=== PATIENT | male | born 1940 | race Caucasian/White ===

== ENCOUNTER 2018-05-22 09:31 | Outpatient (CLI) | payer MEDICARE, SELFPAY ==
[2018-05-22 11:58] LABS: Cholesterol 141 mg/dL (50-200); HDL Cholesterol 68 mg/dL (40-60); LDL CHOLESTEROL 65 mg/dL (<100); TSH 2.06 uIU/mL (0.358-3.74); Triglyceride 41 mg/dL (30-150)
== END 2018-05-22 09:51 ==
PROVIDERS: PCP Emergency Medicine; Visit Provider Emergency Medicine
DX: E03.9 Hypothyroidism, unspecified (principal); I25.10 Atherosclerotic heart disease of native coronary artery without angina pectoris; Z12.5 Encounter for screening for malignant neoplasm of prostate
CPT/HCPCS: 36415; 80061; 83721; 84153; 84443

== ENCOUNTER 2018-06-19 15:58 | Outpatient (CLI) | payer MEDICARE, SELFPAY ==
--- NOTE | 2018-06-19 12:30 | DI.RAD_ITS ---
SYMPTOMS/DIAGNOSIS: COUGH, R05, PNEUMONIA, J18.9 PA AND LATERAL CHEST: The heart is not enlarged. There are mediastinal vascular clips consistent with previous CABG surgery. The lungs are clear. No pleural effusion seen. CONCLUSION: No evidence of acute disease.
[2018-06-19 13:12] LABS: Abs Immature Grans 0.08 k/cumm (0.0-0.09); Absolute Basophil Count 0.05 k/cumm (0.0-0.2); Absolute Eosinophil Count 0.23 k/cumm (0.0-0.7); Absolute Lymphocyte Count 1.39 k/cumm (1.2-3.4); Absolute Monocyte Count 0.99 k/cumm (0.11-0.7); Basophils % 0.6; Eosinophils % 2.6; HCT 40.2 % (40.0-50.0); HGB 13.3 g/dL (13.5-17.5); Immature Grans % 0.9; Lymphocytes % 15.7; Mean Corp. HGB Concentration 33.1 g/dL (32.0-36.0); Mean Corpuscular Hemoglobin 28.8 pg (27.0-33.0); Mean Platelet Volume 9.6 fL (8.0-11.0); Monocytes % 11.2; Platelet Count 219 x1000/uL (130-400); RBC 4.62 m/cumm (4.50-6.00); RBC Distribution Width 13.9 % (11.8-14.1); White Blood Cell Count 8.84 k/cumm (4.4-10.8)
== END 2018-06-19 16:18 ==
PROVIDERS: PCP Emergency Medicine; Visit Provider Emergency Medicine
DX: J18.9 Pneumonia, unspecified organism (principal); R05 Cough; Z95.1 Presence of aortocoronary bypass graft
CPT/HCPCS: 36415; 99213; 71046; 85025

== ENCOUNTER 2018-10-12 06:24 | Day surgery (SDC) | payer MEDICARE, SELFPAY ==
--- NOTE | 2018-10-11 14:19 | W.PIPPEYE ---
History of Present Illness Chief Complaint: Progressive decreased vision, right eye Narrative: The patient is a 78-year-old male with history of progressive decreased vision in both eyes, right eye worse than left. He has decreased vision at both distance and near. On examination he was noted to have bilateral nuclear cortical and posterior subcapsular cataract. Visual acuity measured 20/40 OD with significant glare disability. The option of cataract surgery was offered to the patient and he wished to proceed. NOTE: The Chief Complaint, HPI, Past Medical History, Past Surgical History, Family History, Social History, Medications, and complete Ophthalmic Exam with detailed Assessment and Plan have already been documented in the patient's outpatient ophthalmic record and are not covered again in detail here. [facility] Medical History Cortical cataract of right eye (Acute) Nuclear sclerotic cataract of right eye (Acute) Posterior subcapsular age-related cataract, right eye (Acute) Epiretinal membrane (ERM) of right eye (Acute) Actinic keratosis (Chronic) Carpal tunnel syndrome (Chronic 12/06/14) Coronary artery disease (Chronic 06/07/14) Gastroesophageal reflux disease (Chronic) Hydrocele (Chronic) Joint pain (Chronic) Ventricular arrhythmia (Chronic) Surgical History History of colonoscopy (Chronic) Appendectomy Open Carpal Tunnel release (02/17/15) PROCEDURES Repair of inguinal hernia (~2001) TRIPLE BYPASS Family History Mother Essential hypertension Neoplasm Father Essential hypertension Heart disease Sister No problems noted. Brother Neoplasm Brother No problems noted. Brother No problems noted. Son No problems noted. Daughter Neoplasm Daughter Neoplasm Social History Smoking/Tobacco Use Status: Never Drug use: Never Do you feel safe at home: Yes Do you feel safe in your relationship?: Yes Meds Home Medications Medication Instructions Recorded Confirmed Type ibuprofen [Motrin IB] 400 mg PO DAILY PRN tab-cap 10/20/12 10/06/18 History lansoprazole [Prevacid] 15 mg PO PRN 10/20/12 10/06/18 History multivitamin [Once Daily] 1 ea PO DAILY 10/20/12 10/06/18 History pkllpfel-oknr-vuyzur-hyalur ac 1 ea PO BID 10/23/12 10/06/18 History acetaminophen [Tylenol] 2 tab PO DAILY PRN 01/07/14 09/25/18 History aspirin [Aspirin Low-Strength] 81 mg PO DAILY tab-cap 01/07/14 10/06/18 History cholecalciferol (vitamin D3) 1,000 unit PO DAILY 01/07/14 10/06/18 History atorvastatin [Lipitor] 20 mg PO DAILY #90 tab-cap 12/10/17 10/06/18 Rx levothyroxine 25 mcg tablet 25 mcg PO DAILY #60 tab-cap 05/22/18 10/06/18 Rx acetaminophen 300 mg-codeine 30 5 ml PO QID PRN #120 ml 06/19/18 09/25/18 Rx mg/12.5 mL (12.5 mL) oral solution Allergies Allergy/AdvReac Type Severity Reaction Status Date / Time clindamycin Allergy Mild Verified 10/06/18 11:33 amoxicillin Allergy Unknown Hives Verified 10/06/18 11:33 Penicillins Allergy Unknown Verified 10/06/18 11:33 prednisone AdvReac Unknown Makes Verified 10/06/18 11:33 hyperactive. Exam OCULAR EXAM:: Most recent ocular exam is significant for corrected vision of 20/40 OD, 20/30 OS. IOP is 15 OD, 16 OS. EOMs are full. Slit lamp exam is significant for pupils dilating to 4.5mm OU. There is a 1+ nuclear, cortical, and posterior subcapsular cataract OU. Funds exam shows disk cupping of 0.7 OD, 0.5 OS. Retinal vessels are normal. There is an epiretinal membrane in the temporal macula OD. The remainder of the funduscopic exam is normal. BRIGHTNESS ACUITY TESTING (BAT):: Off 20/40. Low 20/50. Medium 20/60. High 20/80. Assessment and Plan (1) Posterior subcapsular age-related cataract, right eye: Current visit: No Status: Acute Assessment: Visually significant cataract, right eye. Plan: Cataract extraction with intraocular lens implantation, right eye (2) Nuclear sclerotic cataract of right eye: Current visit: No Status: Acute Assessment: Visually significant cataract, right eye. Plan: Cataract extraction with intraocular lens implantation, right eye (3) Cortical cataract of right eye: Current visit: No Status: Acute Assessment: Visually significant cataract, right eye. Plan: Cataract extraction with intraocular lens implantation, right eye Note: NOTE:: The details of the planned surgery, including the risks, indications,limitations,expectations,outcome and possible complications were explained to the patient. The patient understands the complications including, but not limited to: infection, hemorrhage, posterior dislocation of the lens or nuclear fragments which may require the intervention of a vitreoretinal surgeon, possible loss of the eye, or from anesthetic complications. The patient has been made aware of the option of not having surgery, that vision following surgery may not be equal to that prior to surgery, and that the planned surgery may not achieve the intended results. Following this discussion, which the patient appeared to understand, the patient wishes to proceed with cataract surgery with lens implantation of the affected eye to improve and maximize vision.
[2018-10-12] MEDS: Tetracaine 0.5% 4 ML BTL OD ×4 (06:40→07:51)
[2018-10-12] MEDS: Tropicam./Phenyleph. (1/2.5%) 5 ML BTL OD ×3 (06:40→06:51)
[2018-10-12 06:42] VITALS: BP 126/71; PULSE 60; RESP 18; TEMP 35.8; O2SAT 99
[2018-10-12] MEDS: Lidocaine 2% Jelly 6 ML SYR (07:51)
[2018-10-12] MEDS: Povidone-Iodine Ophth 30 ML BTL ×2 (07:51→08:18)
[2018-10-12] MEDS: Balanced Salt Soln.-PLUS 500 ML BAG (07:57)
[2018-10-12] MEDS: Lidocaine 1% Pres-Free 5 ML VIAL (07:57)
[2018-10-12] MEDS: Triamcinolone 40 MG/ML VIAL (08:18)
--- NOTE | 2018-10-12 08:25 | W.PM.DSUDISC ---
Discharge Plan Discharge Details Attending Provider: Shaquille Rogers Primary Care Provider: Mata Bermudez Home Meds and New Rx's Prescriptions: No Action acetaminophen-codeine 300 mg-30 mg /12.5 mL solution 5 ml PO QID PRN (Reason: pain) Qty: 120 RF: 0 levothyroxine [Synthroid] 25 mcg tablet 25 mcg PO DAILY Qty: 60 RF: 6 multivitamin [Once Daily] 1 EACH tablet 1 ea PO DAILY RF: 0 lansoprazole [Prevacid] 15 MG capsule,delayed release(DR/EC) 15 mg PO PRN RF: 0 ibuprofen [Motrin IB] 200 MG tablet 400 mg PO DAILY PRNRF: 0 lvqmwqkv-ltzq-mizahd-hyalur ac 1 EACH capsule 1 ea PO BID RF: 0 aspirin [Aspirin Low-Strength] 81 MG tablet,chewable 81 mg PO DAILY RF: 0 cholecalciferol (vitamin D3) 1,000 UNIT tablet 1,000 unit PO DAILY RF: 0 acetaminophen [Tylenol] 325 MG tablet 2 tab PO DAILY PRN RF: 0 atorvastatin [Lipitor] 20 MG tablet 20 mg PO DAILY Qty: 90 RF: 12 Discharge Instructions Stand Alone Forms: Post-op Topical CataractChitra (DSU) DS: Diagnosis Discharge Diagnosis (1) Posterior subcapsular age-related cataract, right eye: Status: Resolved (2) Nuclear sclerotic cataract of right eye: Status: Resolved (3) Cortical cataract of right eye: Status: Resolved (4) Status post cataract extraction and insertion of intraocular lens of right eye: Status: Chronic
--- NOTE | 2018-10-12 08:26 | W.PM.OP ---
Date of service: 10/12/18 Time of Service: 08:26 Operative Note PRE-OP DIAGNOSIS: Cataract, right eye PROCEDURE: Cataract extraction using phacoemulsification with intraocular lens implant, right eye SURGEON: Shaquille Rogers ANESTHESIA: MAC and local (sub-tenon's anesthetic infiltration) ESTIMATED BLOOD LOSS: 0 PATHOLOGY: none sent COMPLICATIONS: None Patient was transported to: same day Patient's condition: stable Implants: [employer] / [employer] Tecnis [id number] intraocular lens Indications: Progressive decreased vision due to cataract, right eye Procedure Description: CATARACT SURGERY OPERATIVE REPORT PREOPERATIVE DIAGNOSIS: Nuclear/cortical/posterior subcapsular cataract, right eye POSTOPERATIVE DIAGNOSIS: Same OPERATION: Cataract extraction using phacoemulsification with posterior chamber intraocular lens implant, right eye. IOL: IOL [employer] Sales Representative/Model: [employer]Dale[employer] / ADRIANNA Tecnis ZCB00 IOL Power: + 20.50 diopters IOL Serial Number: [id number] Optic Diameter: 6.0mm Haptic/Overall Diameter: 13.0mm PHACO INFO: [employer] Vision System with OZil and Active Fluidics Cumulative Dispersed Energy (CDE): 10.74 seconds SURGEON: Shaquille Rogers MD, ARMIDA ANESTHESIA: Monitored Anesthesia Care (MAC), with local sub-tenon's anesthetic infiltration COMPLICATIONS: None SPECIMENS: None INDICATIONS FOR PROCEDURE: The patient is a 78-year-old male with history of diminished visual acuity in both eyes secondary to the development of bilateral nuclear cortical and posterior subcapsular cataract. He also has an epiretinal membrane of the right eye, and is aware that postoperative visual acuity will be limited by the presence of his pre-existing maculopathy. PROCEDURE: The correct surgical eye was identified and marked as the right eye and the pupil was dilated in the preoperative area using mydriatics and cycloplegics. The dilated pupil size was 7.0 mm. Oral sedation was administered in the form of an Imprimis MKO Melt (midazolam 3mg/ketamine 25mg/ondansetron 2mg). The patient was brought to the operating room where cardiopulmonary monitoring was instituted and surgical time-out was performed, confirming the correct operative eye and IOL power. Topical anesthesia was administered and ophthalmic povidone-iodine 5% was instilled into the conjunctival fornices. Lidocaine gel was applied to the cornea and the hector-ocular area was prepped with Betadine 10% solution and draped in the usual sterile fashion for intraocular surgery, including an aperture drape. A Tegaderm transparent film dressing was cut in half and used to cover the lashes and lid margins. Care was taken to sequester the lashes and lid margins under the Tegaderm dressing. A lid speculum was placed between the lids of the operative eye and the Linnette-Alfonzo operating microscope was maneuvered into position. Ortiz scissors were then used to make a conjunctival buttonhole approximately 6mm posterior to the limbus in the inferonasal quadrant. Blunt dissection was carried out to expose bare sclera, and a blunt-tipped sub-tenon?s anesthesia cannula was introduced and passed posteriorly along the globe where non-preserved plain lidocaine was injected into posterior sub-Tenon?s space. A sideport knife was used to make a paracentesis port inferiortemporally, and the anterior chamber was filled with Healon GV. A 2.4mm keratome knife was used to create a half-thickness groove at the limbus and then to construct a three-plane near-clear corneal tunnel extending 2.0mm into clear cornea in the superiortemporal position. . A flap was raised on the anterior capsule and capsulorhexis forceps were used to complete a continuous curvilinear capsulorhexis of 5.2 mm. Balanced salt solution was then used to perform cortical cleaving hydrodissection and nuclear hydrodelineation until the lens could be freely rotated within the capsular bag. The lens nucleus was then disassembled and removed within the capsular bag and iris plane using phacoemulsification. Residual cortical material was removed using the I/A handpiece. The posterior capsule was carefully polished to remove as much residual lens epithelial cells as safely possible. The capsular bag was then inflated and the anterior chamber deepened with viscoelastic. The lens implant described above was inserted into the capsular bag using the ADRAINNA [place] Injector. A Kuglen hook was used to dial the IOL into position. Residual viscoelastic was then removed first from posterior to the IOL, then from the anterior chamber using the I/A handpiece. The lens implant was noted to center nicely within the capsular bag. The incisions were stromally hydrated, and the anterior chamber was reformed using BSS. Then 0.4cc of moxifloxacin 1.5mg/ml were injected into the capsular bag and anterior chamber. The incisions were checked with a Weck spear and found to be secure. At the conclusion of the procedure, a 1 cc mixture containing 20 mg of triamcinolone in 0.5 cc, and 2.5 mg of moxifloxacin in 0.5cc was incjected into posterior sub-tenon's space using the sub-tenon's injection cannula. Several drops of ophthalmic povidone-iodine 5% were then applied to the eye followed by two drops of Imprimis combination prednisolone/gatifloxacin/bromfenac solution. The drapes were removed and a clear plastic protective eye shield was placed over the eye. The patient was then returned to Same Day Surgery in stable condition.
--- NOTE | 2018-10-12 08:30 | ROE_ITS ---
Date of service: 10/12/18 Time of Service: 08:26 Operative Note PRE-OP DIAGNOSIS: Cataract, right eye PROCEDURE: Cataract extraction using phacoemulsification with intraocular lens implant, right eye SURGEON: Shaquille Rogers ANESTHESIA: MAC and local (sub-tenon's anesthetic infiltration) ESTIMATED BLOOD LOSS: 0 PATHOLOGY: none sent COMPLICATIONS: None Patient was transported to: same day Patient's condition: stable Implants: Jona [employer] J[employer] / [employer] Tecnis [id number] intraocular lens Indications: Progressive decreased vision due to cataract, right eye Procedure Description: CATARACT SURGERY OPERATIVE REPORT PREOPERATIVE DIAGNOSIS: Nuclear/cortical/posterior subcapsular cataract, right eye POSTOPERATIVE DIAGNOSIS: Same OPERATION: Cataract extraction using phacoemulsification with posterior chamber intraocular lens implant, right eye. IOL: IOL Airplane First Officer/Model: [employer] / ADRIANNA Tecnis ZCB00 IOL Power: + 20.50 diopters IOL Serial Number: [id number] Optic Diameter: 6.0mm Haptic/Overall Diameter: 13.0mm PHACO INFO: [employer] Vision System with OZil and Active Fluidics Cumulative Dispersed Energy (CDE): 10.74 seconds SURGEON: Shaquille Rogers MD, ARMIDA ANESTHESIA: Monitored Anesthesia Care (MAC), with local sub-tenon's anesthetic infiltration COMPLICATIONS: None SPECIMENS: None INDICATIONS FOR PROCEDURE: The patient is a 78-year-old male with history of diminished visual acuity in both eyes secondary to the development of bilateral nuclear cortical and posterior subcapsular cataract. He also has an epiretinal membrane of the right eye, and is aware that postoperative visual acuity will be limited by the presence of his pre-existing maculopathy. PROCEDURE: The correct surgical eye was identified and marked as the right eye and the pupil was dilated in the preoperative area using mydriatics and cycloplegics. The dilated pupil size was 7.0 mm. Oral sedation was administered in the form of an Imprimis MKO Melt (midazolam 3mg/ketamine 25mg/ondansetron 2mg). The patient was brought to the operating room where cardiopulmonary monitoring was instituted and surgical time-out was performed, confirming the correct operative eye and IOL power. Topical anesthesia was administered and ophthalmic povidone-iodine 5% was instilled into the conjunctival fornices. Lidocaine gel was applied to the cornea and the hector-ocular area was prepped with Betadine 10% solution and draped in the usual sterile fashion for intraocular surgery, including an aperture drape. A Tegaderm transparent film dressing was cut in half and used to cover the lashes and lid margins. Care was taken to sequester the lashes and lid margins under the Tegaderm dressing. A lid speculum was placed between the lids of the operative eye and the Linnette-Alfonzo operating microscope was maneuvered into position. Ortiz scissors were then used to make a conjunctival buttonhole approximately 6mm posterior to the limbus in the inferonasal quadrant. Blunt dissection was carried out to expose bare sclera, and a blunt-tipped sub-tenon?s anesthesia cannula was introduced and passed posteriorly along the globe where non- preserved plain lidocaine was injected into posterior sub-Tenon?s space. A sideport knife was used to make a paracentesis port inferiortemporally, and the anterior chamber was filled with Healon GV. A 2.4mm keratome knife was used to create a half-thickness groove at the limbus and then to construct a three-plane near-clear corneal tunnel extending 2.0mm into clear cornea in the superiortemporal position. . A flap was raised on the anterior capsule and capsulorhexis forceps were used to complete a continuous curvilinear capsulorhexis of 5.2 mm. Balanced salt solution was then used to perform cortical cleaving hydrodissection and nuclear hydrodelineation until the lens could be freely rotated within the capsular bag. The lens nucleus was then disassembled and removed within the capsular bag and iris plane using phacoemulsification. Residual cortical material was removed using the I/A handpiece. The posterior capsule was carefully polished to remove as much residual lens epithelial cells as safely possible. The capsular bag was then inflated and the anterior chamber deepened with viscoelastic. The lens implant described above was inserted into the capsular bag using the ADRIANNA [place] Injector. A Kuglen hook was used to dial the IOL into position. Residual viscoelastic was then removed first from posterior to the IOL, then from the anterior chamber using the I/A handpiece. The lens implant was noted to center nicely within the capsular bag. The incisions were stromally hydrated, and the anterior chamber was reformed using BSS. Then 0.4cc of moxifloxacin 1.5mg/ml were injected into the capsular bag and anterior chamber. The incisions were checked with a Weck spear and found to be secure. At the conclusion of the procedure, a 1 cc mixture containing 20 mg of triamcinolone in 0.5 cc, and 2.5 mg of moxifloxacin in 0.5cc was incjected into posterior sub- tenon's space using the sub-tenon's injection cannula. Several drops of ophthalmic povidone-iodine 5% were then applied to the eye followed by two drops of Imprimis combination prednisolone/gatifloxacin/bromfenac solution. The drapes were removed and a clear plastic protective eye shield was placed over the eye. The patient was then returned to Same Day Surgery in stable condition.
[2018-10-12 08:55] VITALS: BP 131/71; PULSE 65; RESP 18; TEMP 36.5; O2SAT 94
== END 2018-10-12 09:00 | disposition home or self-care (01) ==
LOC: SUR 06:24
PROVIDERS: PCP Emergency Medicine; Visit Provider Ophthalmology
PROC: (CPT 66984; principal; 2018-10-12 07:30)
DX: H25.811 Combined forms of age-related cataract, right eye (principal); K21.9 Gastro-esophageal reflux disease without esophagitis
CPT/HCPCS: 66984; V2632

== ENCOUNTER 2019-04-28 07:00 | Outpatient (CLI) | payer MEDICARE, SELFPAY ==
[2019-04-29 11:47] LABS: Syphilis Serology (RPR) Negative (Negative)
== END 2019-04-28 07:20 ==
PROVIDERS: PCP Emergency Medicine; Visit Provider Emergency Medicine
DX: L98.499 Non-pressure chronic ulcer of skin of other sites with unspecified severity (principal)
CPT/HCPCS: 36415; 86592

== ENCOUNTER 2019-10-21 02:29 | Outpatient (CLI) | payer MEDICARE, SELFPAY ==
[2019-10-21 10:03] LABS: Calculated LDL 64 mg/dL (<100); Cholesterol 144 mg/dL (<200); HDL Cholesterol 70 mg/dL (40-60); TSH 3.06 uIU/mL (0.36-3.74); Triglyceride 52 mg/dL (<150)
== END 2019-10-21 02:49 ==
PROVIDERS: PCP Emergency Medicine; Visit Provider Emergency Medicine
DX: E03.9 Hypothyroidism, unspecified (principal)
CPT/HCPCS: 36415; 80061; 84443

== ENCOUNTER 2021-05-08 18:35 | Outpatient (REF) | payer MEDICARE, SELFPAY ==
[2021-05-08 13:44] LABS: HCT 41.7 % (40.0-50.0); HGB 13.6 g/dL (13.5-17.5); MCH 28.9 pg (27.0-33.0); MCHC 32.6 % (32.0-36.0); MCV 88.5 fL (80-95); MPV 10.7 fL (8.0-11.0); Platelet Count 174 10^3/uL (130-400); RBC 4.71 10^6/uL (4.36-5.78); RDW 13.9 % (11.8-14.1); RDW-SD 45.3 fL; WBC 7.01 10^3/uL (4.4-10.8)
[2021-05-08 14:27] LABS: Anion Gap 8.6 mmol/L (3-11); BUN 19 mg/dL (7-18); CO2 29.4 mmol/L (21.0-32.0); CREATININE 0.9 mg/dL (0.70-1.30); Calcium 9.1 mg/dL (8.5-10.1); Calculated LDL 77 mg/dL (<100); Chloride 103 mmol/L (98-107); Cholesterol 161 mg/dL (<200); Glucose 98 mg/dL (74-106); HDL Cholesterol 70 mg/dL (40-60); Potassium 4.2 mmol/L (3.5-5.1); Sodium 141 mmol/L (136-145); TSH 3.67 uIU/mL (0.36-3.74); Triglyceride 70 mg/dL (<150)
== END 2021-05-08 18:36 | disposition home or self-care (01) ==
LOC: LBN 18:35
PROVIDERS: PCP Emergency Medicine; Visit Provider Emergency Medicine
DX: I10 Essential (primary) hypertension (principal); E03.9 Hypothyroidism, unspecified; I25.10 Atherosclerotic heart disease of native coronary artery without angina pectoris; R53.83 Other fatigue
CPT/HCPCS: 80048; 80061; 85027; 84443

== ENCOUNTER 2022-04-23 09:26 | Outpatient (CLI) | payer MEDICARE, SELFPAY ==
[2022-04-23 09:06] LABS: Absolute Basophil Count 0.04 10^3/uL (0.0-0.2); Absolute Eosinophil Count 0.15 10^3/uL (0.0-0.7); Absolute Lymphocyte Count 2.45 10^3/uL (1.2-3.4); Absolute Monocyte Count 0.49 10^3/uL (0.1-0.8); Absolute Neutrophil Count 2.21 10^3/uL (1.2-6.7); Basophils % 0.7; Eosinophils % 2.8; HGB 13.4 g/dL (13.5-17.5); Lymphocytes % 45.9; MCHC 32.7 % (32.0-36.0); MCV 89 fL (80-95); MPV 9.7 fL (8.0-11.0); Monocytes % 9.2; Neutrophils % 41.4; Platelet Count 159 10^3/uL (130-400); RBC 4.62 10^6/uL (4.36-5.78); RDW 14.3 % (11.8-14.1); RDW-SD 46.2 fL; WBC 5.34 10^3/uL (4.4-10.8)
[2022-04-23 09:42] LABS: ALT 24 U/L (16-63); Anion Gap 8.2 mmol/L (3-11); BUN 18 mg/dL (7-18); CO2 29.8 mmol/L (21.0-32.0); CREATININE 0.9 mg/dL (0.70-1.30); Calcium 9.1 mg/dL (8.5-10.1); Calculated LDL 67 mg/dL (<100); Chloride 103 mmol/L (98-107); Cholesterol 154 mg/dL (<200); Estimated GFR 86.34 (mL/min/1.73m2); Glucose 112 mg/dL (74-106); HDL Cholesterol 79 mg/dL (40-60); Potassium 4.3 mmol/L (3.5-5.1); Sodium 141 mmol/L (136-145); TSH (W/Ref FT4) 2.51 uIU/mL (0.36-3.74); Triglyceride 43 mg/dL (<150)
== END 2022-04-23 09:27 | disposition home or self-care (01) ==
LOC: LBO 09:29
PROVIDERS: PCP Family Medicine; Visit Provider Family Medicine
DX: I25.10 Atherosclerotic heart disease of native coronary artery without angina pectoris (principal); E03.9 Hypothyroidism, unspecified; D64.9 Anemia, unspecified
CPT/HCPCS: 36415; 80048; 80061; 84443; 84460; 85025

== ENCOUNTER 2022-05-16 09:18 | Outpatient (RCR) | payer MEDICARE, SELFPAY ==
--- NOTE | 2022-05-16 09:15 | HOLTER_ITS ---
APPROVED REPORT Conclusion This is a 48-hour Holter monitor ordered for palpitations Rhythm throughout was sinus with an average heart rate of 67. Minimum was 50, maximum 129 There were rare isolated atrial and ventricular ectopic beats There was 1 ventricular couplet Was no atrial fibrillation, no SVT, no high-grade AV block, no pauses greater than 3 seconds No patient symptoms were reported
== END 2022-06-11 23:59 | disposition home or self-care (01) ==
LOC: CARDOPNVT 09:18
PROVIDERS: PCP Family Medicine; Visit Provider Family Medicine
DX: I49.3 Ventricular premature depolarization (principal)
CPT/HCPCS: 93227; 93225; 93226

== ENCOUNTER 2023-05-09 03:30 | Outpatient (CLI) | payer MEDICARE, SELFPAY | END 2023-05-09 03:31 | disposition home or self-care (01) | LOC: LOS 03:31 | PROVIDERS: PCP Family Medicine; Visit Provider Family Medicine | DX: E03.9 Hypothyroidism, unspecified (principal) | CPT/HCPCS: 36415; 84443 ==

== ENCOUNTER 2024-05-18 08:17 | Outpatient (CLI) | payer MEDICARE, SELFPAY ==
[2024-05-18 13:00] LABS: Calculated LDL 48 mg/dL (<100); Cholesterol 132 mg/dL (<200); HDL Cholesterol 73 mg/dL (40-60); TSH (W/Ref FT4) 3.94 uIU/mL (0.36-3.74); Triglyceride 58 mg/dL (<150)
[2024-05-18 13:16] LABS: FREE T4 0.83 ng/dL (0.76-1.46)
== END 2024-05-18 08:18 | disposition home or self-care (01) ==
LOC: LOS 08:17
PROVIDERS: PCP Family Medicine; Referring Provider Family Medicine; Visit Provider Family Medicine
DX: E78.5 Hyperlipidemia, unspecified (principal); E03.9 Hypothyroidism, unspecified; Z23 Encounter for immunization; I25.10 Atherosclerotic heart disease of native coronary artery without angina pectoris; M19.90 Unspecified osteoarthritis, unspecified site; R03.0 Elevated blood-pressure reading, without diagnosis of hypertension
CPT/HCPCS: 36415; 80061; 84439; 84443

== ENCOUNTER 2024-07-07 03:22 | Outpatient (CLI) | payer MEDICARE, SELFPAY ==
[2024-07-07 12:46] LABS: TSH (W/Ref FT4) 1.24 uIU/mL (0.36-3.74)
== END 2024-07-07 03:23 | disposition home or self-care (01) ==
LOC: LOS 03:22
PROVIDERS: PCP Family Medicine; Visit Provider Family Medicine
DX: E03.9 Hypothyroidism, unspecified (principal)
CPT/HCPCS: 36415; 84443

== ENCOUNTER 2024-08-10 09:41 | Emergency (ER) | payer MEDICARE, SELFPAY ==
--- NOTE | 2024-08-10 09:45 | RT.EKG_ITS ---
APPROVED REPORT Exam: Resting ECG Reason for Exam: Left side chest pain Patient Location: E HR:66 bpm ECG Measurements Heart Rate 66 AXIS TN 101 P 55 QRSd 82 QRS 29 QT 413 T 3 QTc 434 Conclusion Sinus rhythm...normal P axis, V-rate 60- 99 No STEMI
--- NOTE | 2024-08-10 09:45 | DI.RAD_ITS ---
Exam(s) XR RIBS LT W PA LAT CHEST EXAM: XR RIBS LT W PA LAT CHEST CLINICAL HISTORY: Fall, Anterior left side rib pain TECHNIQUE: 2D digital imaging was performed. Six images are obtained. COMPARISON: CR CHEST 2 VIEWS PA,LAT from 10/29/2013 CR XR CHEST 2V PA LATERAL from 06/19/2018 FINDINGS: MEDIASTINUM: Normal. HEART: Normal. Status post CABG. PULMONARY VASCULATURE: Normal. LUNGS: Clear. PLEURAL SPACE: No pleural effusion or pneumothorax. BONE:Within normal limits for the patient's age. There are degenerative changes seen in the left nelson ulder. LEFT RIBS: There is a mildly displaced fracture involving the posterolateral aspect of the left 6th r ib. OTHER FINDINGS:Normal. IMPRESSION: 1. No acute pulmonary findings. 2. Acute minimally displaced fracture involving the posterolateral aspect of the left 6th rib. 3. No pneumothorax or pleural effusion. DATA REPOSITORY: RADIATION DOSE DELIVERED:
[2024-08-10 09:46] VITALS: BP 209/96; PULSE 71; RESP 16; TEMP 36.8; O2SAT 98
--- NOTE | 2024-08-10 09:51 | ED.GENADUL_ITS ---
Discharge Plan Disposition Patient Disposition: Home Condition: Stable Discharge Details Clinical Impression: Left rib fracture Primary Care Provider: Garret Johnson ED Provider: Marci Raza Home Meds and New Rx's Prescriptions: New lidocaine 5 % adhesive patch,medicated 1 patch topical DAILY Qty: 15 0RF Rx Instructions: leave on most painful area for up to 12 hrs Continued atorvastatin [Lipitor] 20 mg tablet 20 mg PO DAILY Qty: 90 3RF multivitamin [Once Daily] 1 EACH tablet 1 ea PO DAILY lansoprazole [Prevacid] 15 MG capsule,delayed release(DR/EC) 15 mg PO PRN Patient Comments: TAKES NEEDED Rx Instructions: PT. UNSURE OF MG. [id number]-hyalur ac 1 EACH capsule 1 ea PO BID aspirin [Aspirin Low-Strength] 81 MG tablet,chewable 81 mg PO DAILY cholecalciferol (vitamin D3) 1,000 UNIT tablet 1,000 unit PO DAILY acetaminophen [Tylenol] 325 MG tablet 2 tab PO DAILY PRN Patient Comments: NEEDED levothyroxine 50 mcg tablet 50 mcg PO DAILY Qty: 90 4RF Discharge Instructions Instructions: Rib Fracture or Bruised Rib ED Additional Instructions: You have a single rib fracture on #6 on the left side. No evidence of pneumonia, collapsed lung or any lung abnormality on the x-ray. Please use the lidocaine patches for 12 hours as directed. Please take Tylenol or Ibuprofen with food every 4-6 hours as needed for pain and swelling. Follow up with primary care provider in 3-5 days. Return to ED sooner if any worsening severe pain, shortness of breath, productive cough, fever or concerns. Thank you for allowing us to care for you today. Referrals: Garret Johnson MD [Primary Care Provider] - 1 week Discharge Data Discharge Date/Time-TO BE ENTERED AT DEPARTURE: 08/10/24 11:03 HPI General Mode of arrival: ambulatory . Date/Time Provider Initiated Documentation: 08/10/24 09:48 . Limitations to Documentation: no limitations . Information obtained by: patient, RN notes reviewed and old records reviewed . HPI Narrative: 84-year-old male presents to the ER with a chief complaint of left anterior rib pain since falling off a ladder a week ago. Patient reports last Friday he fell off a ladder around 6 feet landing on a wooden block. He is complaining of anterior left sided chest pain worse at night when he is sleeping. He states that he is being checked out because his family is bugging him about it. He denies any dizziness lightheadedness nausea diaphoresis denies any shortness of breath. No bruises noted. Lungs are clear to auscultation bilaterally. Denies any neck or back pain. He reports he has taken a couple of Tylenol but nothing recently. Related Data Home Medications ?Medication ?Instructions ?Recorded ?Confirmed lansoprazole 15 mg capsule,delayed 15 mg PO PRN 10/20/12 08/10/24 release (Prevacid) multivitamin (Once Daily tablet) 1 ea PO DAILY 10/20/12 08/10/24 glucosamin 375 mg-chond 300 1 ea PO BID 10/23/12 08/10/24 mg-collagen 50 mg-hyaluronic acid 2 mg cap acetaminophen 325 mg tablet 2 tab PO DAILY PRN 01/07/14 08/10/24 (Tylenol) aspirin 81 mg chewable tablet 81 mg PO DAILY 01/07/14 08/10/24 (Aspirin Low-Strength) cholecalciferol (vitamin D3) 25 1,000 unit PO DAILY 01/07/14 08/10/24 mcg (1,000 unit) tablet atorvastatin 20 mg tablet (Lipitor) 20 mg PO DAILY #90 tab-caps 05/18/24 08/10/24 levothyroxine 50 mcg tablet 50 mcg PO DAILY #90 tab-caps 05/18/24 08/10/24 lidocaine 5 % topical patch 1 patch topical DAILY #15 ea 08/10/24 Previous Rx's ?Medication ?Instructions ?Recorded atorvastatin 20 mg tablet (Lipitor) 20 mg PO DAILY #90 tab-caps 05/18/24 levothyroxine 50 mcg tablet 50 mcg PO DAILY #90 tab-caps 05/18/24 lidocaine 5 % topical patch 1 patch topical DAILY #15 ea 08/10/24 Allergies Allergy/AdvReac Type Severity Reaction Status Date / Time clindamycin Allergy Mild unknown Verified 08/10/24 09:48 amoxicillin Allergy Unknown Hives Verified 08/10/24 09:48 Penicillins Allergy Unknown unknown Verified 08/10/24 09:48 prednisone AdvReac Unknown Makes Verified 08/10/24 09:48 hyperactive. General Stated Complaint: Fall/Non TraumaCriteria NOLVIA: 4 Review of Systems All systems reviewed & are unremarkable except as noted in HPI and below Musculoskeletal Musculoskeletal: Reports as per HPI Exam Narrative Exam Narrative: General: Well Developed, Awake and Alert, conversant. Skin: Warm and Dry HEENT: Head: No palpable deformities, Normocephalic Eyes: Pupils PERRLA, EOM's intact. No periorbital eccymosis or step off Ears: Canal patent. Tympanic membranes are clear . No hamilton's sign, no hemptympanum. Nose/Face: Atraumatic. Facial bones nontender to palpation and stable with manipulation. Mouth/Throat: No intraoral trauma. Teeth and mandible are intact. Neck: No midline tenderness, no step off, no deformity to palpation of C-spine. Trachea midline. Chest: No surface trauma. without crepitus or deformity. Lungs clear to ausculatation bilaterally. Heart: RRR, no rubs, murmurs or gallop. Extremities: no surface trauma. Sensation intact. Peripheral pulses intact and equal. Neuro: ANO x4, GCS 15, cranial nerves II through XII intact. Motor and sensory exam nonfocal. Reflexes are symmetric. Course Vital Signs Vital signs: Vital Signs Temperature 36.8 C 08/10/24 09:46 Pulse 71 08/10/24 09:46 Respiratory Rate 16 08/10/24 09:46 Blood Pressure 209/96 H 08/10/24 09:46 Pulse Oximetry 98 08/10/24 09:46 Temperature 36.8 C 08/10/24 09:46 Pulse 71 08/10/24 09:46 Respiratory Rate 16 08/10/24 09:46 Blood Pressure 209/96 H 08/10/24 09:46 Pulse Oximetry 98 08/10/24 09:46 Pain Level 3 08/10/24 09:46 Medical Decision Making 84-year-old male presents to the ER with a chief complaint of left anterior rib pain since falling off a ladder a week ago. Patient reports last Friday he fell off a ladder around 6 feet landing on a wooden block. He is complaining of anterior left sided chest pain worse at night when he is sleeping. He states that he is being checked out because his family is bugging him about it. He denies any dizziness lightheadedness nausea diaphoresis denies any shortness of breath. No bruises noted. Lungs are clear to auscultation bilaterally. Denies any neck or back pain. He reports he has taken a couple of Tylenol but nothing recently. Left-sided rib series x-ray ordered. Patient does have a history of coronary artery disease and has had a triple bypass. Will do a EKG however this does not appear to be cardiac in nature based on the location of the pain. EKG was reviewed by myself and Dr. Fischer ER attending, no old EKG available for review. Normal sinus rhythm, no STEMI. Chest x-ray shows a left posterior lateral 6 mildly displaced rib fracture. No evidence of pneumothorax or any other abnormalities. Discussed results with patient who verbalized understanding. Given a lidocaine patch here in the department. Discussed strict return instructions including to return for any worsening pain, shortness of breath, productive cough or concerns. Verbalized understanding. This text was generated using [employer] system, please disregard any oddities of phrase or misspellings. Medical Records Medical records reviewed: Yes I reviewed the patient's medical records. Imaging Data Radiologic Study: Imaging: X-Ray Radiologist's impression: EXAM: XR RIBS LT W PA LAT CHEST CLINICAL HISTORY: Fall, Anterior left side rib pain TECHNIQUE: 2D digital imaging was performed. Six images are obtained. COMPARISON: CR CHEST 2 VIEWS PA,LAT from 10/29/2013 CR XR CHEST 2V PA LATERAL from 06/19/2018 FINDINGS: MEDIASTINUM: Normal. HEART: Normal. Status post CABG. PULMONARY VASCULATURE: Normal. LUNGS: Clear. PLEURAL SPACE: No pleural effusion or pneumothorax. BONE:Within normal limits for the patient's age. There are degenerative changes seen in the left shoulder. LEFT RIBS: There is a mildly displaced fracture involving the posterolateral aspect of the left 6th rib. OTHER FINDINGS:Normal. IMPRESSION: 1. No acute pulmonary findings. 2. Acute minimally displaced fracture involving the posterolateral aspect of the left 6th rib. 3. No pneumothorax or pleural effusion. Quality:SDOH Health Related Social Needs: No Data to Display PFSH All Active Problems (Updated 08/10/24 @ 10:49 by Marci Raza NP) Left rib fracture (Acute) Elevated blood pressure reading without diagnosis of hypertension (Acute) Medial epicondylitis of left elbow (Acute) Ganglion cyst (Acute) Preventative health care (Acute) Neck pain (Acute) Viral URI (Acute) Right arm pain (Acute) Palpitations (Acute) Hypothyroid (Chronic) Penile ulcer (Acute) Epiretinal membrane (ERM) of right eye (Acute 10/12/18) Actinic keratosis (Chronic) Coronary artery disease (Chronic 06/07/14) 2014- CABG X 3 Gastroesophageal reflux disease (Chronic) Hydrocele (Chronic) Ventricular arrhythmia (Chronic) History of PVCs per patient, 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 GUZMÁN February Open Carpal Tunnel release (02/17/15) LEFT WRIST/DR. GUZMÁN Repair of inguinal hernia (~2001) RIGHT Appendectomy Family History Mother , age 88 Essential hypertension Breast cancer Father , age 82 Essential hypertension Heart disease Sister Depression Brother Skin cancer Heart disease Brother Heart disease Brother Hyperlipidemia Son No problems noted. Daughter Leukemia Daughter Breast cancer Social History Smoking/Tobacco Use Status: Never Second Hand Exposure: Yes Smoking risk assessment performed?: Yes Alcohol Intake: never Drug use: Never Caregiver/Support person: No Household members: spouse Housing: house Communication Needs: Corrective Lenses Do you need help understanding health information?: Never Pets and animals: No Sexually active: No Do you think of yourself as: straight/heterosexual Current gender identity: male What is your relationship status?: How often do you talk on the phone with friends or family?: three or more times per week How often do you get together with friends or relatives?: three or more times per week How often do you attend voodoo or restoration services?: 1-3 times per year Do you belong to any clubs or organized social groups?: yes Panel score (0-1 are the most socially isolated patients): 3 What type of physical activity do you participate in: walking Duration: 45-60 minutes/day Frequency: 5-6 times per week Ashtyn/L[employer] Day: Yazidi Special ashtyn needs: No Seatbelt use: always Helmet use: No Drive intox or ride w/intox motor coach driver: No Do you feel safe at home: Yes Do you feel safe in your relationship?: Yes Victim of physical abuse: No Victim of emotional abuse: No Victim of sexual abuse: No Would you like helpful sources: No
[2024-08-10] MEDS: Lidocaine 5% Patch 1 PATCH TP (10:59)
== END 2024-08-10 11:03 | disposition home or self-care (01) ==
PROVIDERS: Emergency Provider Registered Nurse Emergency; PCP Family Medicine
DX: S22.32XA Fracture of one rib, left side, initial encounter for closed fracture (principal); W11.XXXA Fall on and from ladder, initial encounter
CPT/HCPCS: 93005; 99284; 71046; 71100; 93010; 99283

== ENCOUNTER 2025-01-24 10:20 | Outpatient (CLI) | payer MEDICARE, SELFPAY ==
[2025-01-25 10:46] LABS: Lyme Ab w Rflx to Lyme Confirm Positive (Negative)
[2025-01-25 12:18] LABS: Lyme IgG Ab Positive (Negative)
[2025-01-26 21:37] LABS: B. miyamotoi PCR Negative (Negative); Babesia divergens/MO-1 Negative (Negative); Ehrlichia muris eauclairensis Negative (Negative)
== END 2025-01-24 10:21 | disposition home or self-care (01) ==
LOC: LOS 10:20
PROVIDERS: PCP Family Medicine; Visit Provider Family Medicine
DX: T14.90XA Injury, unspecified, initial encounter (principal); W57.XXXA Bitten or stung by nonvenomous insect and other nonvenomous arthropods, initial encounter
CPT/HCPCS: 36415; 86617; 87798; 86618